=== PATIENT | female | born 1960 | race Caucasian/White ===

== ENCOUNTER → 2023-11-05 15:15 | Outpatient (REF) | payer OTHER, SELFPAY | LOC: HWRAD 15:15 | PROVIDERS: ATTENDING PHYSICIAN Internal Medicine | DX: Z12.31 Encounter for screening mammogram for malignant neoplasm of breast (principal); E21.3 Hyperparathyroidism, unspecified; E55.9 Vitamin D deficiency, unspecified | CPT/HCPCS: 77063; 77067; 77080 ==

== ENCOUNTER → 2023-11-15 08:48 | Outpatient (REF) | payer OTHER, SELFPAY | LOC: WDC 08:48 | PROVIDERS: ATTENDING PHYSICIAN Internal Medicine | DX: R92.8 Other abnormal and inconclusive findings on diagnostic imaging of breast (principal) | CPT/HCPCS: 76642 ==

== ENCOUNTER → 2023-11-22 07:41 | Outpatient (REF) | payer OTHER, SELFPAY ==
--- NOTE | 2023-11-22 08:46 | OID.BR.INTR ---
HOUSTOND Breast Navigator - Initial
- -
Date of Contact: 11/22/23
Met with patient. Patient given written information on navigator services and support services available at [facility]. Will follow up as needed per protocol.
== END ==
LOC: WDC 07:41
PROVIDERS: ATTENDING PHYSICIAN Internal Medicine
DX: N63.10 Unspecified lump in the right breast, unspecified quadrant (principal); N63.11 Unspecified lump in the right breast, upper outer quadrant
CPT/HCPCS: 88305; 19083; 77065; 88341; 88342; 88360; A4648

== ENCOUNTER → 2023-12-23 10:54 | Outpatient (REF) | payer OTHER, SELFPAY | LOC: WDC 10:54 | PROVIDERS: ATTENDING PHYSICIAN Surgery | DX: C50.411 Malignant neoplasm of upper-outer quadrant of right female breast (principal) | CPT/HCPCS: 19285; 38792; 76942; 77065; A4648; A9541 ==

== ENCOUNTER 2023-12-24 06:12 | Day surgery (SDC) | payer OTHER, SELFPAY ==
[2023-12-10 08:13] VITALS: BMI 41.2
[2023-12-10 09:17] LABS: Hematocrit 41.1 % (37.0-47.0); Hemoglobin 13.3 g/dL (12.0-16.0); Mean Corp Hgb Conc. 32.4 g/dL (33.0-37.0); Mean Corpuscular Hgb 31.5 pg (27.0-31.0); Mean Corpuscular Volume 97.4 fL (81.0-99.0); Mean Platelet Volume 11.1 fL (7.4-10.4); Platelet Count 218 10^3/uL (130-400); Red Blood Cell Count 4.22 10^6/uL (4.20-5.40); Red Cell Dist. Width 13.9 % (11.5-14.5); White Blood Cell Count 5.3 10^3/uL (4.8-10.8)
[2023-12-10 09:57] LABS: ALT (SGPT) 18 U/L (0-35); AST (SGOT) 21 U/L (14-36); Albumin 4.5 g/dl (3.5-5.0); Alkaline Phosphatase 98 U/L (38-126); Blood Urea Nitrogen 23 mg/dl (7-17); Calcium 10.7 mg/dl (8.4-10.2); Carbon Dioxide 26 mmol/L (22-30); Chloride 106 mmol/L (98-107); Estimated Creatinine Clearance 77 ml/min; Glucose 105 mg/dl (70-99); Potassium 4.3 mmol/L (3.5-5.1); Prealbumin (Transthyretin) 29.8 mg/dl (17.6-36.0); Sodium 141 mmol/L (135-145); Total Bilirubin 0.5 mg/dl (0.2-1.3); eGFR > 60.00
[2023-12-10 10:10] LABS: Vitamin D, 25-OH*** 35.6 ng/mL (30-80)
[2023-12-14 13:32] LABS: ALT (SGPT) 17 U/L (0-35); AST (SGOT) 21 U/L (14-36); Albumin 4.2 g/dl (3.5-5.0); Alkaline Phosphatase 95 U/L (38-126); Blood Urea Nitrogen 19 mg/dl (7-17); Calcium 10.4 mg/dl (8.4-10.2); Carbon Dioxide 25 mmol/L (22-30); Chloride 108 mmol/L (98-107); Estimated Creatinine Clearance 87 ml/min; Glucose 102 mg/dl (70-99); Potassium 4.5 mmol/L (3.5-5.1); Sodium 139 mmol/L (135-145); Total Bilirubin 0.7 mg/dl (0.2-1.3); Total Protein 6.6 g/dl (6.3-8.2); eGFR > 60.00
[2023-12-24] VITALS (11 sets, daily range): BP systolic 91–135; BP diastolic 46–76; BMI 41.2
[2023-12-24] MEDS: TYLENOL 1000 MG PO (08:28)
[2023-12-24] MEDS: NORMOSOL-R 1000 IV (08:29)
[2023-12-24] MEDS: LOVENOX 40 MG SC (08:35)
--- NOTE | 2023-12-24 10:36 | W.IMMPOSTOP ---
Surgical Immed Post Op Note
-
Primary Surgeon: Cathryn
Assisting Surgeon: None
Pre-op Diagnosis: Right breast ca
Post-op Diagnosis: Same
Procedure Performed: Right localized lumpectomy, sentinel lymph node mapping and biopsy
Anesthesia Type: General LMA
Specimen / Cultures: Right lumpectomy, margins, sentinel node
Estimated Blood Loss: 6cc
Complications: None
Operative Findings: Negative lymph node
[place] Node Bx Breast Cancer
[place] Node Bx Breast Cancer
Operation performed with curative intent: Yes
Tracer(s) to ID [place] Nodes in Non-Neoadjuvant setting: Radioactive Tracer
Tracer(s) to ID Sent[place] Nodes in the Neoadjuvant Setting: N/A
All nodes at end of dye-filled Lymphatic Channel removed: N/A
All Significantly Radioactive Nodes were removed: Yes
All Palpably Suspicious Nodes were Removed: Yes
Bx Proven Pos Nodes Marked Prior to Chemo ID'd & Removed: N/A
== END 2023-12-24 13:10 | disposition home or self-care (01) ==
LOC: SDS 06:12
PROVIDERS: ATTENDING PHYSICIAN Surgery; FAMILY PHYSICIAN Internal Medicine
DX: C50.911 Malignant neoplasm of unspecified site of right female breast (principal); N60.21 Fibroadenosis of right breast
CPT/HCPCS: 19301; 38525; 88305; 88307; 88332; 36415; 76098; 80053; 82306; 84134; 85027; 88331; 88342; 93005; A4648

== ENCOUNTER → 2024-03-21 13:59 | Outpatient (REF) | payer OTHER, SELFPAY | LOC: RCS 13:59 | PROVIDERS: ATTENDING PHYSICIAN Internal Medicine; FAMILY PHYSICIAN Internal Medicine | DX: I10 Essential (primary) hypertension (principal); Z17.1 Estrogen receptor negative status [ER-]; C50.911 Malignant neoplasm of unspecified site of right female breast | CPT/HCPCS: 93306; 93356; Q9950 ==

== ENCOUNTER → 2024-11-06 16:05 | Outpatient (REF) | payer OTHER, SELFPAY | LOC: HWWDC 16:05 | PROVIDERS: ATTENDING PHYSICIAN Family Medicine Geriatric Medicine; FAMILY PHYSICIAN Internal Medicine | DX: Z12.31 Encounter for screening mammogram for malignant neoplasm of breast (principal) | CPT/HCPCS: 77063; 77067 ==

== ENCOUNTER → 2025-05-08 11:32 | Outpatient (REF) | payer OTHER, SELFPAY | LOC: HWRCS 11:32 | PROVIDERS: ATTENDING PHYSICIAN Internal Medicine; REFERRING PHYSICIAN Internal Medicine | DX: Z01.818 Encounter for other preprocedural examination (principal); M25.562 Pain in left knee | CPT/HCPCS: 78452; 93017; A9500; J2785 ==

== ENCOUNTER 2025-05-30 05:46 | Day surgery (SDC) | payer OTHER, SELFPAY ==
--- NOTE | 2025-05-02 14:26 | CM ---
Demographics: Confirmed
Living situation: independent, home with family
Support Person Post Operatively:
History of
VN: No
SNF: No
Outpatient: [facility], post operatively and then transition to outpatient
Has patient purchased required equipment: walker
PCP: Jailyn
Pharmacy: [facility]
Post Operative Discharge Plan: Home with [facility] and then transition to outpatient PT.
[2025-05-14 13:39] VITALS: BMI 40.4
[2025-05-14 13:57] LABS: Hematocrit 37.6 % (37.0-47.0); Hemoglobin 12.3 g/dL (12.0-16.0); Mean Corp Hgb Conc. 32.7 g/dL (33.0-37.0); Mean Corpuscular Volume 95.7 fL (81.0-99.0); Platelet Count 188 10^3/uL (130-400); Red Cell Dist. Width 13.8 % (11.5-14.5)
[2025-05-14 15:08] LABS: ALT (SGPT) 15 U/L (0-35); AST (SGOT) 20 U/L (14-36); Albumin 4.4 g/dl (3.5-5.0); Alkaline Phosphatase 76 U/L (38-126); Blood Urea Nitrogen 18 mg/dl (7-17); Calcium 10.4 mg/dl (8.4-10.2); Carbon Dioxide 25 mmol/L (22-30); Chloride 109 mmol/L (98-107); Estimated Creatinine Clearance 69 ml/min; Glucose 88 mg/dl (70-99); Potassium 4.2 mmol/L (3.5-5.1); Sodium 139 mmol/L (135-145); Total Protein 6.7 g/dl (6.3-8.2); eGFR > 60.00
[2025-05-15 08:41] LABS: Glycohemoglobin (HgbA1c) 5.4 % (4.0-5.6)
--- NOTE | 2025-05-16 09:22 | VNURNOTE ---
Addendum entered by Samantha Perry RN 05/17/25 09:12:
Rec'ed call back from Mrs. Mora.
Patient is scheduled for an elective L TKA on 05/30-she is a same day patient with Dr Waterman. Spoke with patient prior to surgery. Introduced role of [facility] Liaison. Patient reports that she lives with her spouse.
She is familiar with [facility] services with family members.
Discussed [facility] joint protocol and post surgical plans.
Reviewed that she will have VN services initially and will then start outpatient PT.
Patient selects [facility] for home care needs and will go to [facility] for outpatient PT. She is waiting for prior auth from for outpt PT. She was advised to schedule outpt PT for 06/04. Pt verbalized understanding.
Patient is in agreement with plan and states that her spouse will be home with her. Advised to bring RW day of surgery. Referral placed in [facility].
Plan: [facility] per [facility] joint protocol 05/30 then outpt PT TBD
Original Note:
[facility] liaison called patient to review same day VN, PT services after surgery 05/30. No answer, left message. [facility] referral placed in [facility].
[2025-05-22 14:17] VITALS: BMI 40.4
[2025-05-30] VITALS (16 sets, daily range): BP systolic 103–125; BP diastolic 50–73; PULSE 74; O2SAT 95; BMI 40.4
[2025-05-30] MEDS: NORMOSOL-R/PLASMALYTE-A 1000 IV (06:39)
[2025-05-30] MEDS: TYLENOL 650 MG PO (06:39)
[2025-05-30] MEDS: CELEBREX 200 MG PO (06:39)
--- NOTE | 2025-05-30 07:06 | W.DS.TRANS ---
DC Summary - [employer]
-
Discharge Instructions:
Sleep Apnea Risk Intermediate
Discharge Diagnosis/Procedures L TKA Dr Waterman 05/30/25
Diet As tolerated
Activity With Walker
Driving Restrictions No driving
Bathing Restrictions OK to Shower
Other Services PT
Instructions:
Stand-Alone Forms: SDS Total Hip and Knee D/C
Changes to Home Medications: Yes
Discharge Medications:
DC Medications w/original date entered in [employer]
hydroxychloroquine 200 mg tablet 400 mg PO DAILY 12/20/23
mirabegron 50 mg tablet,extended release 24 hr (Myrbetriq) 50 mg PO HS 12/20/23
venlafaxine 150 mg capsule,extended release 24 hr 150 mg PO DAILY 12/20/23
verapamil 120 mg tablet 120 mg PO DAILY 12/20/23
anastrozole 1 mg tablet 1 mg PO DAILY 05/11/25
calcium carbonate (Tums) 400 mg PO PRN PRN GERD 05/11/25
cholecalciferol (vitamin D3) 125 mcg (5,000 unit) tablet (Vitamin D3) 125 mcg PO DAILY 05/11/25
levothyroxine 150 mcg tablet 150 mcg PO DAILY 05/11/25
mupirocin 2 % topical ointment 1 applic topical BID infection prevention #1 tube 05/11/25
nicotine 21 mg/24 hr daily transdermal patch 1 patch transdermal DAILY 05/11/25
rosuvastatin 40 mg tablet (Crestor) 40 mg PO DAILY 05/11/25
trospium 20 mg tablet 20 mg PO HS 05/11/25
cefadroxil 500 mg capsule 500 mg PO BID infection prevention #14 caps 05/14/25
celecoxib 200 mg capsule 200 mg PO DAILY Anti-inflammatory #14 caps 05/14/25
dexamethasone 4 mg tablet 4 mg PO BID inflammation #6 tabs 05/14/25
famotidine 20 mg tablet 20 mg PO HS GI prophylaxis #30 tabs 05/14/25
gabapentin 300 mg capsule 300 mg PO HS sleep/pain #10 caps 05/14/25
ondansetron 4 mg disintegrating tablet 4 mg PO Q6H PRN n/v #20 tabs 05/14/25
oxycodone 5 mg tablet 5 mg PO Q6H PRN 1 tab moderate pain, 2 tabs severe pain #30 tabs 05/14/25
Saccharomyces boulardii 250 mg capsule (Florastor) 250 mg PO BID #1 cap 05/30/25
acetaminophen 500 mg tablet 500 - 1,500 mg (1 - 3 x 500 mg) PO QID #0 tabs 05/30/25
aspirin 325 mg tablet 325 mg PO DAILY blood clot prevention #1 tab 05/30/25
docusate sodium 100 mg capsule (Colace) 100 mg PO BID stool softner #1 cap 05/30/25
magnesium hydroxide 400 mg/5 mL oral suspension (Milk of Magnesia) 30 ml PO HS PRN constipation #1 mL 05/30/25
sennosides 8.6 mg tablet (Senokot) 17.2 mg (2 x 8.6 mg) PO BID laxative #2 tabs 05/30/25
tramadol 50 mg tablet 50 mg PO Q8H PRN mild pain #0 tabs 05/30/25
valsartan 320 mg tablet 320 mg PO DAILY #0 tabs 05/30/25
Home Medication Changes
mupirocin 2 % topical ointment 1 applic topical BID infection prevention #1 tube 05/11/25
nicotine 21 mg/24 hr daily transdermal patch 1 patch transdermal DAILY 05/11/25
rosuvastatin 40 mg tablet (Crestor) 40 mg PO DAILY 05/11/25
trospium 20 mg tablet 20 mg PO HS 05/11/25
cefadroxil 500 mg capsule 500 mg PO BID infection prevention #14 caps 05/14/25
celecoxib 200 mg capsule 200 mg PO DAILY Anti-inflammatory #14 caps 05/14/25
dexamethasone 4 mg tablet 4 mg PO BID inflammation #6 tabs 05/14/25
famotidine 20 mg tablet 20 mg PO HS GI prophylaxis #30 tabs 05/14/25
gabapentin 300 mg capsule 300 mg PO HS sleep/pain #10 caps 05/14/25
ondansetron 4 mg disintegrating tablet 4 mg PO Q6H PRN n/v #20 tabs 05/14/25
oxycodone 5 mg tablet 5 mg PO Q6H PRN 1 tab moderate pain, 2 tabs severe pain #30 tabs 05/14/25
Saccharomyces boulardii 250 mg capsule (Florastor) 250 mg PO BID #1 cap 05/30/25
acetaminophen 500 mg tablet 500 - 1,500 mg (1 - 3 x 500 mg) PO QID #0 tabs 05/30/25
aspirin 325 mg tablet 325 mg PO DAILY blood clot prevention #1 tab 05/30/25
docusate sodium 100 mg capsule (Colace) 100 mg PO BID stool softner #1 cap 05/30/25
magnesium hydroxide 400 mg/5 mL oral suspension (Milk of Magnesia) 30 ml PO HS PRN constipation #1 mL 05/30/25
sennosides 8.6 mg tablet (Senokot) 17.2 mg (2 x 8.6 mg) PO BID laxative #2 tabs 05/30/25
Pending Results: No
[2025-05-30] MEDS: ANCEF 5 IV (10:52)
[2025-05-30] MEDS: TYLENOL 1000 MG PO (11:13)
[2025-05-30] MEDS: TUMS EX (EXTRA STRENGTH) CHEWABLE TABLET 300 MG PO (11:19)
== END 2025-05-30 12:25 | disposition home or self-care (01) ==
LOC: SDS 05:46
PROVIDERS: ATTENDING PHYSICIAN Orthopaedic Surgery; FAMILY PHYSICIAN Internal Medicine; OTHER PHYSICIAN Internal Medicine
DX: M17.12 Unilateral primary osteoarthritis, left knee (principal)
CPT/HCPCS: 27447; 36415; 73560; 80053; 83036; 85027; 87070; 97162; C1713; C1776